=== PATIENT | male | born 1950 | race Caucasian/White ===

== ENCOUNTER 2016-10-06 09:57 | Day surgery (SDC) | payer BC ==
[2016-10-06] MEDS ORDERED: Lactated Ringers 1,000 ML IV SCH (10:45)
[2016-10-06] MEDS ORDERED: Midazolam 1 MG/ML 2 ML SDV ONE (11:49)
[2016-10-06] MEDS ORDERED: Propofol 200 MG/20 ML SDV ONE (11:49)
[2016-10-06] MEDS ORDERED: fentaNYL 100 MCG/2 ML SDV ONE (11:49)
[2016-10-06 13:31] VITALS: BP 105/81
--- NOTE | 2016-10-07 07:24 | OR ---
DATE OF PROCEDURE: 10/07/2015 PREOPERATIVE DIAGNOSIS: Colon cancer screening. POSTOPERATIVE DIAGNOSIS: Diverticulosis. Two colon polyps, proximal right colon and at 30 cm from anal verge. PROCEDURES: Colonoscopy to the cecum with biopsy and then snare cautery polypectomy, proximal right colon polyp and biopsy resection of a small polyp 30 cm from anal verge. ANESTHESIA: IV anesthesia with monitored anesthesia care. INDICATIONS: This 65-year-old white male is referred for a colonoscopy for colon cancer screening. He says his last colonoscopic exam was done more than ten years ago. I counseled him for the procedure including risks and alternatives, he gave his informed consent to proceed. DESCRIPTION OF PROCEDURE: The patient was placed in the left lateral decubitus position. IV anesthesia was administered by the Anesthesia Service. Time-out was held. A rectal exam was performed, which was unremarkable. A flexible video Olympus colonoscope was introduced through his anus, up his rectum, and out his colon all the way to the cecum. En route, we saw a few scattered left-sided diverticula. There was no bleeding nor inflammation associated with them. Once the cecum was reached, the scope was slowly withdrawn examining the mucosa throughout. In the proximal right colon, a medium-sized polyp was seen. We initially biopsied it, and it was too large to remove using this technique. We then placed a snare at its base and elevated it up away from the bowel wall amputating the polyp as electrocautery was applied. The polyp was aspirated up through the scope and captured in a polyp trap. The scope was then withdrawn examining the mucosa throughout. No additional new mucosal abnormalities noted until we reached 30 cm from anal verge. Here a small polyp was seen, which was removed with the biopsy forceps. The scope was retroflexed in the rectum with the distal rectum appearing unremarkable. The scope was straightened and removed. He tolerated the procedure well. Denny Ramires MD /[id number] ELA[facility]
== END 2016-10-06 13:45 | disposition home or self-care (01) ==
LOC: JP.SDS 09:57
PROVIDERS: ATTEND Surgery
DX: Z12.11 Encounter for screening for malignant neoplasm of colon (principal); D12.6 Benign neoplasm of colon, unspecified; K57.30 Diverticulosis of large intestine without perforation or abscess without bleeding; J45.909 Unspecified asthma, uncomplicated; E11.9 Type 2 diabetes mellitus without complications; G47.33 Obstructive sleep apnea (adult) (pediatric); Z88.2 Allergy status to sulfonamides; Z91.012 Allergy to eggs
CPT/HCPCS: 45380; 45385; 88305; J2250; J2704; J3010; J7120

== ENCOUNTER 2017-10-19 06:54 | Day surgery (SDC) | payer BC ==
[2017-10-19] MEDS ORDERED: Lactated Ringers 1,000 ML IV SCH (07:00)
[2017-10-19] MEDS ORDERED: Midazolam 1 MG/ML 2 ML SDV ONE (08:49)
[2017-10-19] MEDS ORDERED: Propofol 200 MG/20 ML SDV ONE (08:49)
[2017-10-19] MEDS ORDERED: fentaNYL 100 MCG/2 ML SDV ONE (08:49)
[2017-10-19 09:59] VITALS: BP 128/80
--- NOTE | 2017-10-19 10:57 | OR ---
DATE OF PROCEDURE: 10/19/2017 PREOPERATIVE DIAGNOSIS: History of adenomatous colon polyps. POSTOPERATIVE DIAGNOSES: Diverticulosis, history of adenomatous colon polyps. PROCEDURE: Colonoscopy to the cecum. SURGEON: Denny Ramires MD ANESTHESIA: IV anesthesia with monitored anesthesia care. INDICATION: This 66-year-old white male is here for a colonoscopy to follow up a colonoscopy a year ago, where 2 polyps were removed. One of them was a sessile serrated polyp, it was small. The other was a pedunculated tubular adenoma. I counseled him for a colonoscopy with possible biopsy and/or polypectomy, including risks and alternatives, and he gave his informed consent to proceed. DESCRIPTION OF PROCEDURE: The patient was placed in the left lateral decubitus position. IV anesthesia was administered by the Anesthesia Service. Time-out was held. A rectal exam was performed, which was unremarkable. The flexible video Olympus colonoscope was introduced through his anus, up his rectum, and out his colon, all the way to the cecum. En route, we saw a few scattered left-sided diverticula. There was no bleeding or inflammation associated with any of them. Once the cecum was reached, the scope was slowly withdrawn, examining the mucosa throughout. No additional mucosal abnormalities were noted. No neoplastic lesions were seen. The scope was retroflexed in the rectum with the distal rectum appearing unremarkable. The scope was straightened and removed. He tolerated the procedure well. Denny Ramires MD /[id number]
== END 2017-10-19 10:10 | disposition home or self-care (01) ==
LOC: JP.SDS 06:54
PROVIDERS: ATTEND Surgery
DX: K57.30 Diverticulosis of large intestine without perforation or abscess without bleeding (principal); J45.909 Unspecified asthma, uncomplicated; G47.33 Obstructive sleep apnea (adult) (pediatric); K21.9 Gastro-esophageal reflux disease without esophagitis; E11.9 Type 2 diabetes mellitus without complications; I25.2 Old myocardial infarction; Z86.010 Personal history of colon polyps; Z88.2 Allergy status to sulfonamides
CPT/HCPCS: 45378; J2250; J2704; J3010; J7120

== ENCOUNTER 2021-06-05 07:50 | Day surgery (SDC) | payer BC, MEDICARE ==
[2021-06-05] MEDS ORDERED: Propofol 200 MG/20 ML SDV ONE (07:52)
[2021-06-05] MEDS ORDERED: Midazolam 1 MG/ML 2 ML SDV ONE (07:52)
[2021-06-05] MEDS ORDERED: fentaNYL 100 MCG/2 ML SDV ONE (07:52)
[2021-06-05] MEDS ORDERED: Dextrose 5%-Lactated Ringers 1,000 ML IV SCH (09:00)
[2021-06-05] MEDS ORDERED: Pantoprazole 40 MG Vial IVPUSH ONE (11:19)
[2021-06-05 12:35] VITALS: BP 118/80; PULSE 63
--- NOTE | 2021-06-07 12:22 | OR ---
DATE OF PROCEDURE: 06/05/2021 SURGEON: Wade Penn MD PREOPERATIVE DIAGNOSIS: Dysphagia with longstanding history of gastroesophageal reflux disease. POSTOPERATIVE DIAGNOSES: 1. Dysphagia with longstanding history of gastroesophageal reflux disease. 2. Small hiatal hernia with moderately active gastroesophageal reflux disease but without significant stricturing. 3. Large deep pre-pyloric gastric ulcer. OPERATIVE PROCEDURE: Esophagogastroduodenoscopy with: 1. Biopsies of pre-pyloric ulcer. 2. Biopsies of esophagogastric junction. ANESTHESIA: IV sedation. INDICATIONS FOR PROCEDURE: A 70-year-old male presenting with some increasing dysphagia. He does have report of gastroesophageal reflux symptoms since he was a teenager. He presently is on Pepcid 40 mg a day. The plan is to proceed with an upper GI endoscopy with biopsies and/or dilation as indicated. Potential risks including bleeding and perforation were discussed, and the patient wishes to proceed. DETAILS OF PROCEDURE: The patient was taken to the operating room and placed in a left lateral decubitus position. IV sedation was administered after which the upper GI endoscope was passed orally through the length of the esophagus into the stomach with retroflexion view of the fundus, and thereafter through the pyloric channel and into the proximal duodenum. Findings included normal hypopharynx, larynx, upper esophageal sphincter, and esophageal body. At the EG junction, the patient was noted to have roughly 2 cm hiatal hernia with some moderately active gastroesophageal reflux disease. The mucosa in this area is markedly reddened and edematous, but there was not any fibrous stricturing per se. Within the stomach, there was a quite large deep pre-pyloric ulcer bleeding. This was in the field of antral gastritis, and beyond that, some duodenitis within the duodenal bulb. At this point, biopsies were obtained along the edges of the pre-pyloric ulcer and then biopsy was obtained from esophagogastric junction, all sent for histologic evaluation. Minimal bleeding from the biopsy sites was seen and the procedure was then concluded. At this point, the patient will be given Protonix 40 mg IV push in the recovery room and then Protonix 40 mg daily, #90 refill x1 year. He will be instructed at least for now to stay on the Pepcid as well. With the gastric ulcer healing needs to be confirmed by subsequent endoscopy, a repeat upper endoscopy will be scheduled for 07/07/2021. Wade Penn MD Job #: [id number]
== END 2021-06-05 12:30 | disposition home or self-care (01) ==
LOC: JP.SDS 07:50
PROVIDERS: ATTEND Surgery
DX: K29.00 Acute gastritis without bleeding (principal); K29.50 Unspecified chronic gastritis without bleeding; K21.9 Gastro-esophageal reflux disease without esophagitis; K44.9 Diaphragmatic hernia without obstruction or gangrene; K25.9 Gastric ulcer, unspecified as acute or chronic, without hemorrhage or perforation; K29.80 Duodenitis without bleeding; G47.33 Obstructive sleep apnea (adult) (pediatric); J45.909 Unspecified asthma, uncomplicated; E11.9 Type 2 diabetes mellitus without complications; Z88.2 Allergy status to sulfonamides
CPT/HCPCS: 43239; C9113; J2250; J2704; J3010; J7121

== ENCOUNTER 2021-07-07 05:24 | Day surgery (SDC) | payer MEDICARE ==
[2021-07-07] MEDS ORDERED: Dextrose 5%-Lactated Ringers 1,000 ML IV SCH (06:00)
[2021-07-07] MEDS ORDERED: fentaNYL 100 MCG/2 ML SDV ONE (07:02)
[2021-07-07] MEDS ORDERED: Midazolam 1 MG/ML 2 ML SDV ONE (07:02)
[2021-07-07] MEDS ORDERED: Propofol 200 MG/20 ML SDV ONE (07:02)
[2021-07-07 08:23] VITALS: PULSE 60
[2021-07-07 08:34] VITALS: BP 148/93
--- NOTE | 2021-07-09 08:46 | OR ---
DATE OF PROCEDURE: 07/07/2021 SURGEON: Wade Penn MD PREOPERATIVE DIAGNOSIS: History of prepyloric gastric ulcer. POSTOPERATIVE DIAGNOSIS: Persistent smaller prepyloric gastric ulcer. OPERATIVE PROCEDURES: Upper gastrointestinal endoscopy with: 1. Biopsies of the prepyloric ulcer for histologic examination. 2. Biopsy of the antrum for CLOtest. ANESTHESIA: IV sedation. INDICATION FOR PROCEDURE: A 70-year-old male status post upper endoscopy for upper abdominal pain. This showed a large prepyloric gastric ulcer, biopsies of which at that time were negative. He has been on Pepcid and Protonix since that time, in general has done quite a bit better, and the plan is to proceed with a followup endoscopy this time to ascertain whether or not the ulcer has healed. Potential risks, including bleeding and perforation, were discussed, and the patient wishes to proceed. DETAILS OF PROCEDURE: The patient was taken to the operating room and placed in a left lateral decubitus position. IV sedation was administered, after which the upper GI endoscope was passed orally through the esophagus into the stomach with retroflexion view of the fundus and thereafter through the pyloric channel and into the proximal duodenum. Findings included normal hypopharynx, larynx, upper esophageal sphincter, esophageal body, and EG junction area. There was a tiny bit of retained bile in the stomach where the prepyloric ulcer was located. There was still a small area of ulceration with this being covered with a fibrinous-type exudate. There was a great deal of reddened stomach, raised tissue around it in a half qawalangin. This was most likely related to healing of the ulcer. Otherwise, there was mild diffuse antral gastritis. Pyloric channel and visualized portions of the duodenum were unremarkable. At this point, biopsies were obtained from the antrum and sent for CLOtest for H pylori. Multiple biopsies were then obtained in and around the area of ulceration and sent for histologic evaluation. Minimal bleeding from the biopsy sites was seen, and the procedure was then concluded. In general, these gastric ulcers need to be followed up further and proven to be entirely healed given this I will have him continue with a combination of Pepcid and Protonix and be scheduled for a followup endoscopy on 08/11/2021 unless today's pathology shows neoplastic changes. Wade Penn MD /[id number]
== END 2021-07-07 08:50 | disposition home or self-care (01) ==
LOC: JP.SDS 05:24
PROVIDERS: ATTEND Surgery
DX: K25.9 Gastric ulcer, unspecified as acute or chronic, without hemorrhage or perforation (principal); K29.50 Unspecified chronic gastritis without bleeding; G47.33 Obstructive sleep apnea (adult) (pediatric); E11.9 Type 2 diabetes mellitus without complications; E66.9 Obesity, unspecified; Z88.2 Allergy status to sulfonamides; Z68.34 Body mass index [BMI] 34.0-34.9, adult
CPT/HCPCS: 43239; 87081; J2250; J2704; J3010; J7121

== ENCOUNTER 2021-08-11 07:27 | Day surgery (SDC) | payer MEDICARE ==
[~2021-08-11 07:27] MED LIST: Midazolam 1 MG/ML 2 ML SDV ONE; Propofol 200 MG/20 ML SDV ONE; fentaNYL 100 MCG/2 ML SDV ONE
[2021-08-11] MEDS ORDERED: Dextrose 5%-Lactated Ringers 1,000 ML IV SCH (08:00)
[2021-08-11 08:19] LABS: CORONAVIRUS COVID-19 NAA NEGATIVE (NEGATIVE)
[2021-08-11 10:41] VITALS: BP 124/87; PULSE 59
--- NOTE | 2021-08-11 21:37 | OR ---
DATE OF PROCEDURE: 08/11/2021 SURGEON: Wade Penn MD PREOPERATIVE DIAGNOSIS: History of prepyloric gastric ulcer. POSTOPERATIVE DIAGNOSIS: Healed prepyloric gastric ulcer with persistent antral gastritis and proximal duodenitis. PROCEDURE PERFORMED: Esophagogastroduodenoscopy with: 1. Biopsies overrunning site of gastric ulcer. 2. Biopsies of antrum for CLOtest. ANESTHESIA: IV sedation. INDICATION FOR PROCEDURE: The patient is now 2 months status post presenting with a very large deep prepyloric ulcer. This appeared to be deep enough that it would be very close to perforating at the time. He was started on Protonix. Biopsies at that time were negative for any neoplasia or positivity for H. pylori. The patient was started on Protonix and quite quickly had good symptom relief. One month later, i.e. one month ago, he had another upper endoscopy, this showed near complete healing of his ulcer but not complete healing. He has continued on the Protonix and presents now for followup upper endoscopy to try to confirm that the ulcer is now healed, to rule out any malignancy associated with the ulcer. Potential risks of the procedure including bleeding and perforation were discussed, and the patient wishes to proceed. DETAILS OF PROCEDURE: The patient was taken to the operating room and placed in left lateral decubitus position. IV sedation was administered after which the upper GI endoscope was passed orally through the length of the esophagus and stomach with retroflexion in the fundus, thereafter through the pyloric channel to the junction of 3rd and 4th portions of the duodenum. Findings included normal hypopharynx, larynx, upper esophageal sphincter and esophageal body. Only minimal hiatal hernia was noted and this was not associated with any significant inflammation or upward migration of columnar mucosa. Within the stomach, there was some retained bile. In the antrum, there was generalized [id number] gastritis. The area of the prepyloric ulcer was now reddened but he had an intact mucosa. However, pyloric channel and proximal duodenum were unremarkable. At this point, biopsies were obtained from the antrum and sent for CLOtest for H pylori. Multiple biopsies were then obtained from the area where the prepyloric ulcer had been located again to help rule out any neoplastic change in that area, although none would be suspected at this time. recent biopsy site was seen and the scope was withdrawn and the procedure then concluded. As long as the patient is doing well, he will probably stay on the Protonix snf unless we identify H pylori on today's exam either by means of the CLOtest or the biopsies. He is not on any medications that would make him prone to have ulcer disease per se and with the absence of H pylori, again he should likely stay on Protonix long-term as the ulcer that was seen earlier was quite deep and if one were to recur such as that, he would have some complications such as a major bleeding or perforation. Wade Penn MD /[id number]
== END 2021-08-11 10:43 | disposition home or self-care (01) ==
LOC: JP.SDS 07:27
PROVIDERS: ATTEND Surgery
DX: K29.50 Unspecified chronic gastritis without bleeding (principal); K29.80 Duodenitis without bleeding; G47.33 Obstructive sleep apnea (adult) (pediatric); J45.909 Unspecified asthma, uncomplicated; E11.9 Type 2 diabetes mellitus without complications; Z88.2 Allergy status to sulfonamides; Z01.812 Encounter for preprocedural laboratory examination; Z20.822 Contact with and (suspected) exposure to COVID-19
CPT/HCPCS: 0241U; 43239; 87081; 88305; 88342; J2250; J2704; J3010; J7121

== ENCOUNTER 2022-11-04 06:48 | Day surgery (SDC) | payer MEDICARE ==
[2022-11-04] MEDS ORDERED: Midazolam 1 MG/ML 2 ML SDV ONE (07:13)
[2022-11-04] MEDS ORDERED: Propofol 200 MG/20 ML SDV ONE (07:13)
[2022-11-04] MEDS ORDERED: fentaNYL 50 MCG/ML SDV ONE (07:14)
[2022-11-04] MEDS ORDERED: Sodium Chloride 0.9% 1,000 ML IV SCH (07:30)
[2022-11-04 08:51] VITALS: PULSE 68
[2022-11-04 09:02] VITALS: BP 135/85
== END 2022-11-04 09:02 | disposition home or self-care (01) ==
LOC: JP.SDS 06:48
PROVIDERS: ATTEND Surgery
DX: Z12.11 Encounter for screening for malignant neoplasm of colon (principal); K57.30 Diverticulosis of large intestine without perforation or abscess without bleeding; G47.33 Obstructive sleep apnea (adult) (pediatric); E78.00 Pure hypercholesterolemia, unspecified; E11.9 Type 2 diabetes mellitus without complications; J45.909 Unspecified asthma, uncomplicated; Z88.2 Allergy status to sulfonamides; Z79.899 Other long term (current) drug therapy
CPT/HCPCS: G0121; J2250; J2704; J3010; J7030

== ENCOUNTER 2022-12-26 19:10 | Emergency (ER) | payer MEDICARE ==
[2022-12-26] MEDS ORDERED: Diphtheria,Pertussis(Acell),Tetanus Vaccine 0.5 ML Syringe IM ONE (21:40)
[2022-12-26 22:32] VITALS: BP 164/91; PULSE 71
== END 2022-12-26 21:50 | disposition home or self-care (01) ==
LOC: JP.ED 19:10
DX: S60.551A Superficial foreign body of right hand, initial encounter (principal); E78.00 Pure hypercholesterolemia, unspecified; I10 Essential (primary) hypertension; J45.909 Unspecified asthma, uncomplicated; K21.9 Gastro-esophageal reflux disease without esophagitis; M19.90 Unspecified osteoarthritis, unspecified site; E11.9 Type 2 diabetes mellitus without complications; Z23 Encounter for immunization; Z86.16 Personal history of COVID-19; Z88.2 Allergy status to sulfonamides; Z79.899 Other long term (current) drug therapy; Z79.82 Long term (current) use of aspirin; Z79.84 Long term (current) use of oral hypoglycemic drugs; W45.8XXA Other foreign body or object entering through skin, initial encounter
CPT/HCPCS: 90471; 90715; 99282-25